=== PATIENT | female | born 1960 | race Caucasian/White ===

== ENCOUNTER → 2018-02-12 | Outpatient (CLI) | payer BC ==
[~2018-02-12] MED LIST: ACTI260C3 PO; BUPR-127 PO; CIPR-326 PO; DIAZ-1 PO; ESCI20TA8 PO; ESTR-41 PO; KET10 PO; LOR5/325 PO; MULT1CAP41 PO; ONDA4TAB9 PO; OXYC-865 PO
== END ==
LOC: US 01:43
PROVIDERS: ATTEND Nurse Practitioner Psychiatric/Mental Health
DX: R01.1 Cardiac murmur, unspecified (principal)
CPT/HCPCS: 93306

== ENCOUNTER → 2018-03-26 | Outpatient (CLI) | payer BC ==
[~2018-03-26] MED LIST changes: +BUPR-124 PO; +CARI-327 PO; +INDO-23 PO; +LOSA50TA80 PO; +PRED-1 PO; +TRAM-420 PO
--- NOTE | 2018-03-26 14:42 | RADIOLOGY IMAGING REPORT ---
FACILITY: [facility] - [place] PATIENT NAME: Fátima Hunt : 1960 MR: [id number] V: [id number] EXAM DATE: ORDERING PHYSICIAN: OMAIRA ENGLISH TECHNOLOGIST: Location: [facility] [place] Patient: Fátima Hunt : 1960 Visit/Account:[id number] Date of Sevice: 03/26/2018 Exam type: CHEST PA LAT History: Cough, RA, baseline Comparison: November 14, 2013 Findings: Again noted is hyperinflation of the lung espinoza. There is no evidence of focal infiltrates, pleural effusions or overt pulmonary edema. The cardiac silhouette appears upper limits of normal in size. There is moderate ectasia the thoracic aorta. There is a severe S-shaped scoliosis of the thoracal lumbar spine. Incompletely imaged are postsurgical changes from anterior fusion of the cervical spin e.. IMPRESSION: 1. Hyperinflation of the lung espinoza although no evidence of acute pulmonary consolidation Cardiac silhouette is upper limits of normal in size Moderate ectasia of the thoracic aorta Severe S-shaped scoliosis of the thoracolumbar spine. Report Dictated By: Justa Lambert MD at 03/26/2018 2:33 PM Report E-Signed By: Justa Lambert MD at 03/26/2018 2:37 PM WSN:[email or web address]
== END ==
LOC: RAD 13:37
PROVIDERS: ATTEND Physician Assistant Medical
DX: I77.810 Thoracic aortic ectasia (principal); R91.8 Other nonspecific abnormal finding of lung field; M41.84 Other forms of scoliosis, thoracic region
CPT/HCPCS: 71046

== ENCOUNTER → 2018-03-29 | Outpatient (CLI) | payer BC ==
[~2018-03-29] MED LIST changes: +SPIR25TA80 PO
== END ==
LOC: LAB 12:10
PROVIDERS: ATTEND Emergency Medicine
DX: I10 Essential (primary) hypertension (principal)
CPT/HCPCS: 36415; 82088; 83835; 84244

== ENCOUNTER → 2018-04-01 | Outpatient (CLI) | payer BC | LOC: RESP 06:51 | PROVIDERS: ATTEND Emergency Medicine | DX: J98.4 Other disorders of lung (principal) | CPT/HCPCS: 94060; 94726; 94729 ==

== ENCOUNTER → 2018-04-09 | Outpatient (CLI) | payer BC ==
[~2018-04-09] MED LIST changes: +HYDR10TA20 PO; +METH2.5T43 PO
== END ==
LOC: LAB 14:41
PROVIDERS: ATTEND Emergency Medicine
DX: E87.6 Hypokalemia (principal)
CPT/HCPCS: 36415; 82310; 82374; 82435; 82565; 82947; 84132; 84295; 84520

== ENCOUNTER 2018-04-15 13:46 | Emergency (ER) | payer BC ==
--- NOTE | 2018-04-15 13:52 | ER Report ---
History and Physical Time Seen By MD: 13:52 HPI/ROS CHIEF COMPLAINT: Chest discomfort, shortness of breath, cough HISTORY OF PRESENT ILLNESS: 57-year-old female patient presents to the emergency room with complaint of chest discomfort, shortness of breath and cough. Patient states been going on since Sunday. She states on Sunday she was started on methotrexate for possible rheumatoid arthritis the right knee. She states that since then she's not been feeling well. She states that she is tender across her chest and back. She states she's had significant amounts of cough, as well as sweats. Patient states she has not checked her temperature does not believe that she has a fever. She denies having any vomiting but states she's been nauseated and had diarrhea. She has not taken any medication for this. She discussed with her primary care's office by coming in to be evaluated and was recommended to come to the emergency room for further evaluation. REVIEW OF SYSTEMS: Respiratory: As noted above Cardiovascular: As noted above Gastrointestinal: No vomiting, no abdominal pain. Musculoskeletal: No back pain. Allergies: Coded Allergies: No Known Allergies (Verified Allergy, Mild, 04/15/18) Home Meds Active Scripts Hydralazine Hcl (HYDRALAZINE HCL) 10 Mg Tablet, 10 MG PO QID, #56 TAB 0 Refills Prov:SHANTI CROOKS MD 04/09/18 Reported Medications Methotrexate Sodium (METHOTREXATE) Unknown Strength Tablet, PO Q12H 04/09/18 Prednisone 10 Mg Tab (PREDNISONE 10 MG TAB) 10 Mg Tablet, 10 MG PO QDAY, TAB 03/28/18 Carisoprodol (CARISOPRODOL) 350 Mg Tablet, 1 TAB PO DAILY, TAB 03/07/18 Tramadol Hcl (TRAMADOL HCL) 50 Mg Tablet, 1 TAB PO QID PRN for PAIN, #90 TAB 1 Refill 03/07/18 Losartan Potassium (LOSARTAN POTASSIUM) 50 Mg Tablet, 50 MG PO BID 03/07/18 Bupropion Hcl (BUPROPION XL) 150 Mg Tab.er.24h, 1 TAB PO QDAY, TAB 03/07/18 Escitalopram Oxalate (ESCITALOPRAM OXALATE) 20 Mg Tablet, 1 TAB PO QDAY 03/07/18 Discontinued Scripts Spironolactone (SPIRONOLACTONE) 25 Mg Tablet, 25 MG PO DAILY, #30 TAB 0 Refills Prov:SHANTI CROOKS MD 04/08/18 Past Medical/Surgical History Patient has a past medical history of hypertension, 30 year smoking history, reflux, frequent UTI, arthritis, alcohol use, depression, skin cancer. Patient has a surgical history of hysterectomy, section, laparoscopy, hernia repair, cholecystectomy, cervical fusion. Reviewed Nurses Notes: Yes Hx Smoking: No Smoking Status: Former Smoker Hx Alcohol Use: Yes Constitutional Vital Sign - Last 24 Hours 04/15/18 04/15/18 04/15/18 04/15/18 13:51 14:00 14:15 14:43 Temp 97.1 Pulse 110 113 107 Resp 16 B/P (MAP) 138/107 153/113 (126) Pulse Ox 91 93 89 O2 Delivery Room Air 04/15/18 04/15/18 04/15/18 14:45 15:15 15:30 Pulse 95 98 94 Resp 10 45 8 B/P (MAP) 157/114 (128) Pulse Ox 93 93 91 Physical Exam General Appearance: The patient is alert, has no immediate need for airway protection and no current signs of toxicity. ENT: Tympanic membranes are pearly-wright, auditory canals are patent, mixed mucous membranes are moist Respiratory: Chest is non tender, lungs are clear to auscultation. Cardiac: regular rate and rhythm Gastrointestinal: Abdomen is soft and non tender, no masses, bowel sounds normal. Musculoskeletal: Neck: Neck is supple and non tender. Extremities have full range of motion and are non tender. Skin: No rashes or lesions. DIFFERENTIAL DIAGNOSIS: After history and physical exam differential diagnosis was considered for chest pain including but not limited to myocardial ischemia, pericarditis pulmonary embolus, chest wall pain, pleural inflammation and pulmonary infectious causes. Medical Decision Making Data Points Result Diagram: 04/15/18 1413 04/15/18 1413 Laboratory Hematology Test 04/15/18 14:13 04/15/18 14:16 Red Blood Count 4.43 M/uL (4.17-5.56) Mean Corpuscular Volume 95.3 fL (80.0-96.0) Mean Corpuscular Hemoglobin 31.5 pg (26.0-33.0) Mean Corpuscular Hemoglobin Concent 33.1 g/dL (32.0-36.0) Red Cell Distribution Width 13.0 % (11.5-14.5) Mean Platelet Volume 6.1 fL (7.2-11.1) Neutrophils (%) (Auto) 66.6 % (39.4-72.5) Lymphocytes (%) (Auto) 20.3 % (17.6-49.6) Monocytes (%) (Auto) 11.9 % (4.1-12.4) Eosinophils (%) (Auto) 0.3 % (0.4-6.7) Basophils (%) (Auto) 0.9 % (0.3-1.4) Nucleated RBC Relative Count (auto) 0.1 /100WBC Neutrophils # (Auto) 2.6 K/uL (2.0-7.4) Lymphocytes # (Auto) 0.8 K/uL (1.3-3.6) Monocytes # (Auto) 0.5 K/uL (0.3-1.0) Eosinophils # (Auto) 0.0 K/uL (0.0-0.5) Basophils # (Auto) 0.0 K/uL (0.0-0.1) Nucleated RBC Absolute Count (auto) 0.01 K/uL D-Dimer Quantitative (PE/DVT) 2.61 ug/ml (0-0.50) Sodium Level 130 mmol/L (137-145) Potassium Level 3.6 mmol/L (3.5-5.0) Chloride Level 99 mmol/L (98-107) Carbon Dioxide Level 25 mmol/L (22-31) Blood Urea Nitrogen 8 mg/dl (7-18) Creatinine 0.60 mg/dl (0.52-1.04) Glomerular Filtration Rate Calc > 60.0 Random Glucose 143 mg/dl (75-110) Calcium Level 9.5 mg/dl (8.4-10.2) Total Bilirubin 0.3 mg/dl (0.2-1.3) Aspartate Amino Transf (AST/SGOT) 29 U/L (0-35) Alanine Aminotransferase (ALT/SGPT) 29 U/L (0-56) Alkaline Phosphatase 101 U/L (0-126) Troponin I < 0.012 ng/ml B-Type Natriuretic Peptide 25 pg/ml (0-100) Total Protein 7.8 g/dl (6.3-8.2) Albumin 4.4 g/dl (3.5-5.0) Influenza Virus Type A (PCR) Negative (NEGATIVE) Influenza Virus Type B (PCR) Negative (NEGATIVE) Chemistry Test 04/15/18 14:13 04/15/18 14:16 White Blood Count 3.9 k/uL (4.5-11.0) Red Blood Count 4.43 M/uL (4.17-5.56) Hemoglobin 14.0 g/dL (12.0-16.0) Hematocrit 42.2 % (34.0-47.0) Mean Corpuscular Volume 95.3 fL (80.0-96.0) Mean Corpuscular Hemoglobin 31.5 pg (26.0-33.0) Mean Corpuscular Hemoglobin Concent 33.1 g/dL (32.0-36.0) Red Cell Distribution Width 13.0 % (11.5-14.5) Platelet Count 191 K/uL (150-450) Mean Platelet Volume 6.1 fL (7.2-11.1) Neutrophils (%) (Auto) 66.6 % (39.4-72.5) Lymphocytes (%) (Auto) 20.3 % (17.6-49.6) Monocytes (%) (Auto) 11.9 % (4.1-12.4) Eosinophils (%) (Auto) 0.3 % (0.4-6.7) Basophils (%) (Auto) 0.9 % (0.3-1.4) Nucleated RBC Relative Count (auto) 0.1 /100WBC Neutrophils # (Auto) 2.6 K/uL (2.0-7.4) Lymphocytes # (Auto) 0.8 K/uL (1.3-3.6) Monocytes # (Auto) 0.5 K/uL (0.3-1.0) Eosinophils # (Auto) 0.0 K/uL (0.0-0.5) Basophils # (Auto) 0.0 K/uL (0.0-0.1) Nucleated RBC Absolute Count (auto) 0.01 K/uL D-Dimer Quantitative (PE/DVT) 2.61 ug/ml (0-0.50) Glomerular Filtration Rate Calc > 60.0 Calcium Level 9.5 mg/dl (8.4-10.2) Total Bilirubin 0.3 mg/dl (0.2-1.3) Aspartate Amino Transf (AST/SGOT) 29 U/L (0-35) Alanine Aminotransferase (ALT/SGPT) 29 U/L (0-56) Alkaline Phosphatase 101 U/L (0-126) Troponin I < 0.012 ng/ml B-Type Natriuretic Peptide 25 pg/ml (0-100) Total Protein 7.8 g/dl (6.3-8.2) Albumin 4.4 g/dl (3.5-5.0) Influenza Virus Type A (PCR) Negative (NEGATIVE) Influenza Virus Type B (PCR) Negative (NEGATIVE) Coagulation Test 04/15/18 14:13 D-Dimer Quantitative (PE/DVT) 2.61 ug/ml EKG/Imaging EKG Interpretation 12 lead EKG: Rhythm: Sinus tachycardia with ventricular rate of 104 bpm [place]: normal QRS: normal ST segments: normal Imaging Technique: CHEST PA LAT HISTORY: Chest Pain Comparison studies: Chest radiographs 03/26/2018 FINDINGS: No acute airspace consolidation. No pleural effusion. Present is pulmonary hyperexpansion. The cardiomediastinal silhouette as well as scoliotic curvature unchanged. IMPRESSION: 1. No acute cardiopulmonary process. 2. Chronic findings as above. Report Dictated By: Shashi Velasco DO at 04/15/2018 2:45 PM Report E-Signed By: Shashi Velasco DO at 04/15/2018 2:47 PM ED Course/Re-evaluation ED Course Patient was admitted to an exam room, history and physical were obtained. Differential diagnoses were considered. On examination lungs are clear, heart was regular, abdomen soft nontender. A chest x-ray, CBC, CMP, EKG, troponin, BNP, d-dimer were done. Patient had a negative white count, EKG showed a sinus t achycardia, troponin was negative, BNP was normal, CMP was unremarkable. Influenza screen was done which was negative. Patient had an elevated d-dimer of 2.51. I discussed the findings with the patient. With it being elevated a CT pulmonary angiogram was done which showed no pulmonary emboli. I discussed the findings with the patient. I discussed with her that I do not have any causes to her feeling so lousy. He could very well be the methotrexate which she started. However could be a viral illness as well. Patient stated that she is stopped her methotrexate. I encouraged her to contact her primary care provider to inform them of that decision. She is to return to the emergency room if condition worsens. Patient verbalized understanding and agreement with plan. Decision to Disposition Date: Apr 15, 2018 Decision to Disposition Time: 16:04 Depart Departure Latest Vital Signs Vital Signs Date Time Temp Pulse Resp B/P (MAP) Pulse Ox O2 Delivery O2 Flow Rate FiO2 04/15/18 15:30 94 8 157/114 (128) 91 04/15/18 13:51 97.1 Room Air Impression: Primary Impression: Viral syndrome Condition: Condition Unchanged Disposition: HOME OR SELF-CARE Referrals: SHANTI CROOKS MD (PCP) Patient Instructions: Viral Syndrome (ED) Additional Instructions: Increase fluid intake. Get plenty of rest. Take Tylenol or Ibuprofen as needed for pain or fevers. Follow up with your primary care provider in the next week, call them and let them know that you have stopped your methotrexate. Return to the ER if condition worsens. This could be caused by your Methotrexate as well. CURTIS AGUAYO Apr 15, 2018 13:52
--- NOTE | 2018-04-15 14:10 | EKG ---
FACILITY: [facility] - [place] PATIENT NAME: JAELYN PENN : [id number] MR: [id number] V: [id number] EXAM DATE: ORDERING PHYSICIAN: CURTIS AGUAYO TECHNOLOGIST: SANA Fernandes Reason : TIGHTNESS Blood Pressure : / mmHG Vent. Rate : 104 BPM Atrial Rate : 104 BPM P-R Int : 122 ms QRS Dur : 078 ms QT Int : 338 ms P-R-T Axes : 054 011 059 degrees QTc Int : 444 ms Sinus tachycardia Otherwise normal ECG When compared with ECG of 13-NOV-2013 12:50, No significant change was found Confirmed by MARIANO GODWIN ([id number]) on 04/15/2018 8:41:23 PM Referred By: YANCI Confirmed By:MARIANO GODWIN
[2018-04-15 14:24] LABS: PLATELET COUNT, AUTOMATED 191 K/uL (150-450)
--- NOTE | 2018-04-15 14:50 | RADIOLOGY IMAGING REPORT ---
FACILITY: [facility] PATIENT NAME: Fátima Hunt : 1960 MR: [id number] V: [id number] EXAM DATE: ORDERING PHYSICIAN: CURTIS AGUAYO TECHNOLOGIST: Location: [facility] - [place] Patient: Fátima Hunt : 1960 Visit/Account:[id number] Date of Sevice: 04/15/2018 Technique: CHEST PA LAT HISTORY: Chest Pain Comparison studies: Chest radiographs 03/26/2018 FINDINGS: No acute airspace consolidation. No pleural effusion. Present is pulmonary hyperexpansion . The cardiomediastinal silhouette as well as scoliotic curvature unchanged. IMPRESSION: 1. No acute cardiopulmonary process. 2. Chronic findings as above. Report Dictated By: Shashi Velasco DO at 04/15/2018 2:45 PM Report E-Signed By: Shashi Velasco DO at 04/15/2018 2:47 PM WSN:[email or web address]
[2018-04-15] MEDS ORDERED: IOPAMIDOL 76% 50 ML INFUS BTL 50 ML ONE (14:56)
[2018-04-15] MEDS ORDERED: NS(*) 0.9% 50 ML BAG 50 ML ONE (14:57)
[2018-04-15 15:30] VITALS: BP 157/114
--- NOTE | 2018-04-15 15:31 | RADIOLOGY IMAGING REPORT ---
FACILITY: [facility] - [place] PATIENT NAME: Fátima Hunt : 1960 MR: [id number] V: [id number] EXAM DATE: ORDERING PHYSICIAN: CURTIS AGUAYO TECHNOLOGIST: Location: [facility] Patient: Fátima Hunt : 1960 Visit/Account:[id number] Date of Sevice: 04/15/2018 CT ANGIOGRAM OF THE CHEST WITH INTRAVENOUS CONTRAST, PE PROTOCOL DATE OF EXAM: 04/15/2018 14:34 COMPARISON: Chest radiographs of the same day. INDICATION: chest discomfort, shortness of breath. TECHNIQUE: Contrast enhanced chest CT performed during the injection of 75 ml of Isovue 370. Three-d imensional (MIP) reconstructions were performed. FINDINGS: Negative for pulmonary arterial embolus. Thyroid: Normal Thoracic inlet: No adenopathy. Heart and great vessels: Heart size is normal. Mediastinum and raheem: No adenopathy. Lungs and pleura: Mild dependent atelectasis. Breast and axilla: Saline implants are intact. Bones and soft tissues: No acute osseous abnormality. There is severe leftward curvature of the upp er thoracic spine Upper abdomen: Unremarkable. IMPRESSION: Negative for pulmonary arterial embolus. One of the following dose optimization techniques was utilized in the performance of this exam: Autom ated exposure control; adjustment of the mA and/or kV according to the patient's size; or use of an i terative reconstruction technique. Specific details can be referenced in the facility's radiology C T exam operational policy. Report Dictated By: Rosa Maria Laws MD at 04/15/2018 3:22 PM Report E-Signed By: Rosa Maria Laws MD at 04/15/2018 3:27 PM WSN:[email or web address]
== END 2018-04-15 16:12 | disposition home or self-care (01) ==
LOC: ER 14:12
DX: B34.9 Viral infection, unspecified (principal)
CPT/HCPCS: 71046; 71275; 83880; 84484; 85025; 85379; 87502; 93005; 99284; J7050; Q9967; 82040; 82247; 82310; 82374; 82435; 82565; 82947; 84075; 84132; 84155; 84295; 84450; 84460; 84520

== ENCOUNTER 2018-06-10 13:22 | Outpatient (RCR) | payer BC ==
[2018-06-12] MEDS ORDERED: IOPAMIDOL 76% 150 ML INFUS BTL 150 ML ONE (08:17)
--- NOTE | 2018-06-12 09:39 | RADIOLOGY IMAGING REPORT ---
FACILITY: [facility] PATIENT NAME: Fátima Hunt : 1960 MR: [id number] V: [id number] EXAM DATE: ORDERING PHYSICIAN: DAMION BROOKS TECHNOLOGIST: Location: [facility] Patient: Fátima Hunt : 1960 Visit/Account:[id number] Date of Sevice: 06/12/2018 EXAMINATION: CT head without IV contrast CT head with IV contrast HISTORY: Ataxia. COMPARISON: None. TECHNIQUE: Contiguous axial images were obtained from the skull base to the vertex before and after IV contrast. Sagittal and coronal reformatted images are also submitted. CONTRAST: 75 mL of IV Isovue-370. One of the following dose optimization techniques was utilized in the performance of this exam: Autom ated exposure control; adjustment of the mA and/or kV according to the patient's size; or use of an i terative reconstruction technique. Specific details can be referenced in the facility's radiology C T exam operational policy. FINDINGS: Brain volume: Normal. Ventricles: Normal. Acute ischemic changes: None. Hemorrhage: None. Masses/edema: None. Enhancement: Normal. Hwang-white: Negative. White matter: A few hypodensities in the deep white matter bilaterally. Vessels: Negative. Extra-axial: Negative. Calvarium/scalp: Negative. Skull base/visualized face: Negative. Visualized sinuses/orbits: Moderate mucosal thickening in the right maxillary sinus partly visualize d. Metallic density at the upper aspect of the right orbit may be in the eyelid. IMPRESSION: 1. No acute infarct, hemorrhage or intracranial mass lesion. 2. Mild nonspecific white matter disease could be due to chronic small vessel ischemia, chronic migr mat headaches, previous inflammation or trauma. A demyelinating disease such as multiple sclerosis could be considered in the correct clinical setting. Brain MRI without and with IV contrast could be done for further evaluation if clinically indicated. 3. Moderate inflammation of the right maxillary sinus partly visualized. Report Dictated By: Mei Sheehan MD at 06/12/2018 9:31 AM Report E-Signed By: Mei Sheehan MD at 06/12/2018 9:35 AM WSN:[id number]
== END 2018-06-12 18:00 | disposition home or self-care (01) ==
LOC: CT 13:22 → EDSTATUS 06-12 13:21 → CT 06-12 18:00
PROVIDERS: ATTEND Family Medicine
DX: R27.0 Ataxia, unspecified (principal)
CPT/HCPCS: 36415; 70470; 82565; Q9967